=== PATIENT | male | born 1990 ===

== ENCOUNTER 2018-11-18 22:19 | Emergency (ER) | payer OTHER ==
[2018-11-18 22:22] VITALS: BP 139/74; PULSE 76; RESP 16; TEMP 97.7; O2SAT 100
[2018-11-18] MEDS ORDERED: Amoxicillin-Clav 875-125 mg Tab PO STA (22:55)
--- NOTE | 2018-11-18 22:57 | ED PDOC ---
Upper Extremity Pain/Injury Time Seen by Provider: 11/18/18 22:31 Chief Complaint (Nursing): Finger,Hand,&Wrist Chief Complaint (Provider): Puncture wound History Per: Patient, EMS History/Exam Limitations: no limitations Onset/Duration Of Symptoms: Hrs (one) Current Symptoms Are (Timing): Still Present Quality: Sharp (Pt presents to the ED via EMS after puncturing his left hand on a stacking tack at a restaraunt; there is no bleeding and no visible signs of trauma to the hand; the patient indictates that his last tetanus shot was one year ago. Pt denies infection, red streaking, drainage, discharge or inflammation) Past Medical History Reviewed: Historical Data, Nursing Documentation, Vital Signs Vital Signs: Last Vital Signs Temp 97.7 F 11/18/18 22:21 Pulse 76 11/18/18 22:21 Resp 16 11/18/18 22:21 BP 139/74 11/18/18 22:21 Pulse Ox 100 11/18/18 22:21 - Family History Family History: States: Unknown Family Hx - Home Medications Home Medications: Ambulatory Orders Medication Instructions Recorded Amoxicillin/Clavulanate [Augmentin 1 tab PO BID #20 tab 11/18/18 875 MG-125 MG] - Allergies Allergies/Adverse Reactions: Allergies Allergy/AdvReac Type Severity Reaction Status Date / Time No Known Allergies Allergy Verified 11/18/18 22:34 Review of Systems ROS Statement: Except As Marked, All Systems Reviewed And Found Negative Skin: Positive for: Other (puncture wound) Physical Exam - Reviewed Nursing Documentation Reviewed: Yes Vital Signs Reviewed: Yes - Physical Exam Appears: Positive for: Well, Non-toxic, No Acute Distress. Negative for: Uncomfortable Head Exam: Positive for: ATRAUMATIC, NORMAL INSPECTION Skin: Positive for: Normal Color, Warm, Dry. Negative for: Diaphoresis, Pallor, Rash Eye Exam: Positive for: Normal appearance Neck: Positive for: Normal, Painless ROM, Supple. Negative for: Decreased ROM Cardiovascular/Chest: Positive for: Regular Rate, Rhythm Respiratory: Positive for: Normal Breath Sounds Pulses-Carotid (L): 2+ Pulses-Carotid (R): 2+ Pulses-Radial (L): 2+ Pulses-Radial (R): 2+ - ECG O2 Sat by Pulse Oximetry: 100 Medical Decision Making Medical Decision Making: Wet read of hand xray indicates no signs of trauma Pt is comfortale and is stable for discharge Pt will be given dose of augmentin in ED with rx to follow Disposition - Clinical Impression Clinical Impression: Puncture wound of left hand - Patient ED Disposition Is Patient to be Admitted: No Doctor Will See Patient In The: Office Counseled Patient/Family Regarding: Studies Performed, Diagnosis, Need For Followup, Rx Given - Disposition Referrals: [facility] [Outside] Disposition: Routine/Home Disposition Time: 23:01 Condition: STABLE Prescriptions: Amoxicillin/Clavulanate [Augmentin 875 MG-125 MG] 1 tab PO BID #20 tab Instructions: Wound Care (DC), Wound Care Forms: [facility] (Colombian), [facility] (Indian) Print Language: CYPRIOT
[2018-11-18] MEDS ORDERED: Amoxicillin-Clav 875-125 mg Tab PO ONE (23:06)
--- NOTE | 2018-11-19 10:59 | RAD ---
PROCEDURE: Left Hand Radiographs. HISTORY: puncture wound COMPARISON: None. FINDINGS: BONES: No acute fracture. JOINTS: Unremarkable. SOFT TISSUES: Normal. OTHER FINDINGS: None. IMPRESSION: No demonstrated fracture or dislocation.
== END 2018-11-18 23:23 | disposition home or self-care (01) ==
LOC: EDBD → H.ER 22:19 → MERGE 22:19 → H.ER 23:23
DX: S61.432A Puncture wound without foreign body of left hand, initial encounter (principal); W26.8XXA Contact with other sharp object(s), not elsewhere classified, initial encounter; Y99.0 Civilian activity done for income or pay